=== PATIENT | female | born 1975 | race Caucasian/White ===

== ENCOUNTER 2018-09-10 12:14 | Emergency (ER) | payer MEDICAID ==
[~2018-09-10] VITALS: Ht 175.3 cm; Wt 104.0 kg
[~2018-09-10 12:14] MED LIST: CELE-193 PO; HYDR25CA PO; LYR75C PO; PROP10TA10 PO; PROP50TA3 PO; TRAM50TA2 PO; ZOLP5TAB2 PO
[2018-09-10 12:52] VITALS: BP 118/50
[2018-09-10] MEDS ORDERED: ERYT1OIN6 RIGHTEYE (13:12)
== END 2018-09-10 13:48 | disposition home or self-care (01) ==
LOC: ER 12:14
DX: H10.9 Unspecified conjunctivitis (principal); I10 Essential (primary) hypertension; I48.91 Unspecified atrial fibrillation; E05.90 Thyrotoxicosis, unspecified without thyrotoxic crisis or storm; Z56.0 Unemployment, unspecified; Z88.6 Allergy status to analgesic agent; Z88.1 Allergy status to other antibiotic agents; Z88.0 Allergy status to penicillin; Z88.2 Allergy status to sulfonamides; Z88.8 Allergy status to other drugs, medicaments and biological substances
CPT/HCPCS: 99283

== ENCOUNTER 2019-01-30 15:31 | Emergency (ER) | payer MEDICAID ==
[~2019-01-30] VITALS: Ht 175.3 cm; Wt 106.8 kg
[2019-01-30] MEDS ORDERED: benzonatate 100mg capsule PO ONE (16:15)
[2019-01-30] MEDS ORDERED: albuterol 2.5 MG/3 ML nebule NEB ONE (16:15)
[2019-01-30] MEDS ORDERED: GUAI600T45 PO (16:49)
[2019-01-30] MEDS ORDERED: BENZ-16 PO (16:49)
[2019-01-30 17:14] VITALS: BP 123/70
== END 2019-01-30 17:17 | disposition home or self-care (01) ==
LOC: ER 15:32
DX: J20.9 Acute bronchitis, unspecified (principal); I48.91 Unspecified atrial fibrillation; I10 Essential (primary) hypertension; E03.9 Hypothyroidism, unspecified; F41.9 Anxiety disorder, unspecified; F32.9 Major depressive disorder, single episode, unspecified; F17.210 Nicotine dependence, cigarettes, uncomplicated; Z56.0 Unemployment, unspecified; Z88.0 Allergy status to penicillin; Z88.2 Allergy status to sulfonamides; Z88.5 Allergy status to narcotic agent; Z88.6 Allergy status to analgesic agent; Z88.8 Allergy status to other drugs, medicaments and biological substances; Z79.899 Other long term (current) drug therapy
CPT/HCPCS: 71045; 93005; 94640; 94760; 99283

== ENCOUNTER 2019-10-01 20:37 | Emergency (ER) | payer MEDICAID ==
[~2019-10-01] VITALS: Ht 175.3 cm; Wt 98.6 kg
[~2019-10-01 20:37] MED LIST changes: +GUAI600T45 PO
[2019-10-01] MEDS ORDERED: BECL10.6 INH (21:49)
[2019-10-01] MEDS ORDERED: PRAZ1CAP5 PO (21:49)
[2019-10-01] MEDS ORDERED: BENZ-16 PO (21:49)
[2019-10-01] MEDS ORDERED: ALBU90AE2 INH (21:49)
[2019-10-01] MEDS ORDERED: LORA-269 PO (21:49)
[2019-10-01] MEDS ORDERED: ATOR40TA72 PO (21:49)
[2019-10-01] MEDS ORDERED: TRIA1CAP6 PO (21:49)
[2019-10-01] MEDS ORDERED: TIZA4TAB5 PO (21:49)
[2019-10-01] MEDS ORDERED: ESCI20TA45 PO (21:49)
[2019-10-01] MEDS ORDERED: LEVO75TA7 PO (21:49)
[2019-10-01] MEDS ORDERED: PROP10TA10 PO (22:16)
[2019-10-01 22:34] LABS: URINE HCG NEGATIVE (NEG)
[2019-10-01 22:38] LABS: BASOPHILS # (AUTO) 0.1 X10'3 (0-0.2); BASOPHILS % (AUTO) 0.8 % (0-1); EOSINOPHILS # (AUTO) 0.3 X10'3 (0-0.9); EOSINOPHILS % (AUTO) 2.5 % (0-6); HEMATOCRIT 36.6 % (35.0-45.0); HEMOGLOBIN 12.8 g/dl (12.0-16.0); LYMPHOCYTES # (AUTO) 3.1 X10'3 (1.1-4.8); LYMPHOCYTES % (AUTO) 26.1 % (21-51); MEAN CORPUSCULAR HEMOGLOBIN 33.4 PG (27.0-31.0); MEAN CORPUSCULAR HGB CONC 34.8 g/dL (33.0-36.5); MEAN PLATELET VOLUME 8.3 FL (7.4-10.4); MONOCYTES # (AUTO) 0.9 X10'3 (0-0.9); NEUTROPHILS # (AUTO) 7.4 X10'3 (1.8-7.7); NEUTROPHILS % (AUTO) 62.6 % (42-75); PLATELET COUNT 285 X10'3 (140-440); RED BLOOD COUNT 3.82 X10'6 (4.20-5.60); RED CELL DISTRIBUTION WIDTH 13.1 % (11.5-14.5); WHITE BLOOD COUNT 11.9 X10'3 (4.5-11.0)
[2019-10-01 22:44] LABS: CLARITY,URINE CLEAR (Clear); COLOR,URINE YELLOW (Yellow); GLUCOSE, URINE NEGATIVE (Neg); KETONES,URINE NEGATIVE (Neg); LEUKOCYTE ESTERASE ,URINE NEGATIVE (Neg); NITRITES, URINE NEGATIVE (Neg); OCCULT BLOOD,URINE NEGATIVE (Neg); PROTEIN,URINE NEGATIVE (Neg); UROBILINOGEN,URINE 0.2 E.U/dL (0.2-1.0)
[2019-10-01 22:47] LABS: URINE AMPHETAMINE SCREEN NEGATIVE (Neg); URINE BARBITUATE SCREEN NEGATIVE (Neg); URINE BENZODIAZEPINES SCREEN NEGATIVE (Neg); URINE CANNABINOID SCREEN NEGATIVE (Neg); URINE COCAINE SCREEN NEGATIVE (Neg); URINE METHADONE SCREEN NEGATIVE (Neg); URINE OPIATE SCREEN NEGATIVE (Neg); URINE PHENCYCLIDINE SCREEN NEGATIVE (Neg)
[2019-10-01 22:48] LABS: ALANINE AMINOTRANSFERASE 20 U/L (12-78); ALBUMIN 3.7 G/DL (3.4-5.0); ALBUMIN/GLOBULIN RATIO 0.9 (1.1-1.5); ALKALINE PHOSPHATASE 75 IU/L (46-116); ANION GAP 8 (8-16); ASPARTATE AMINO TRANSFERASE 12 U/L (10-37); BILIRUBIN,TOTAL 0.4 MG/DL (0.1-1.0); BLOOD UREA NITROGEN 24 MG/DL (7-18); BUN/CREATININE RATIO 16.9 (6.6-38.0); CHLORIDE 101 MMOL/L (99-107); CREATININE 1.42 MG/DL (0.40-0.90); GLUCOSE 106 MG/DL (70-104); POTASSIUM 3.3 MMOL/L (3.5-5.1); SODIUM 138 MMOL/L (135-145); TOTAL CARBON DIOXIDE 28.8 MMOL/L (24-32); TOTAL PROTEIN 7.8 G/DL (6.4-8.2); eGFR 40 ML/MIN
[2019-10-01 22:57] LABS: UA COLLECTION TYPE CLN CATCH MIDSTREAM
[2019-10-01 22:59] LABS: ETHANOL < 0.010 GM/DL (0.0-0.010)
--- NOTE | 2019-10-02 00:05 | NUR ---
CALLED REPORT TO [facility] IN OVERFLOW. tracx TECH CAME AND ESCORTED PT OVER.
--- NOTE | 2019-10-02 00:06 | NUR ---
pt moved to bed 20 in overflow. escorted by tech
--- NOTE | 2019-10-02 00:12 | NUR ---
Pt is cooperative with assessment and care. pt expressed that she is "a ball of nerves" and requested something for pain and to help her sleep. when asked what she takes at home, she replied, "I already took it all." PATRICE Petersen aware of pt request, no orders as of now.
[2019-10-02] MEDS ORDERED: ibuprofen tablet 400 MG TABLET PO ONE (00:25)
[2019-10-02] MEDS: LORazepam 1 MG tablet PO SCH ×3 (00:38→20:17)
--- NOTE | 2019-10-02 01:25 | NUR ---
pt is sleeping, rr unlabored, no s/s of distress noted.
--- NOTE | 2019-10-02 01:26 | NUR ---
packet has been sent to [place] office
--- NOTE | 2019-10-02 03:37 | NUR ---
Pt is sleeping, no s/s of distress noted.
--- NOTE | 2019-10-02 04:46 | NUR ---
pt continues to sleep, rr unlabored, no s/s of distress noted.
--- NOTE | 2019-10-02 06:42 | NUR ---
ASSUMED CARE FROM [facility] RN, PT IS CURRENTLY SLEEPING ON RIGHT SIDE, RESPIRATIONS SPONTANEOUS, EVEN AND UNLABORED, NO S/S OF DISTRESS, DISCOMFORT OR AGITATION, PT IN LINE OF SITE OF NURSES STATION. WILL CONTINUE TO MONITOR.
[2019-10-02] MEDS: propranolol 10mg tablet PO SCH (08:00)
[2019-10-02] MEDS: triamterene/HCTZ 37.5/25mg tablet PO SCH (08:00)
--- NOTE | 2019-10-02 08:08 | NUR ---
PT IS SLEEPING ON LEFT SIDE, RESPIRATIONS SPONTANEOUS, EVEN AND UNLABORED, NO S/S OF DISTRESS, DISCOMFORT OR AGITATION, PT IN LINE OF SITE OF NURSES STATION. WILL CONTINUE TO MONITOR.
--- NOTE | 2019-10-02 08:29 | NUR ---
[facility]AC[facility] AT [facility], PT CONTINUES TO SLEEP, RESPIRATIONS SPONTANEOUS, EVEN AND UNLABORED, NO S/S OF DISTRESS, DISCOMFORT, OR AGITATION, WILL MEDICATE PT WHEN SHE WAKES.
--- NOTE | 2019-10-02 08:34 | NUR ---
[facility] TO [place] PT, PT WOKE UP TO SPEAK WITH MARINO
[2019-10-02] MEDS: budesonide 0.5mg/2ml UD nebule IH SCH ×2 (09:00→21:00)
[2019-10-02] MEDS: benzonatate 100mg capsule PO SCH ×2 (09:10→20:17)
[2019-10-02] MEDS: ESCITALOPRAM OXALATE 5 MG TABLET PO SCH (09:10)
[2019-10-02] MEDS: tizanidine 4mg tablet PO SCH ×2 (09:11→20:17)
[2019-10-02] MEDS: atorvastatin 20mg tablet PO SCH (09:11)
[2019-10-02] MEDS: levoTHYROXINE 75mcg tablet PO SCH (09:11)
[2019-10-02] MEDS: pregabalin 75mg capsule PO SCH ×2 (09:11→20:17)
[2019-10-02] MEDS ORDERED: DOXY100C76 PO (09:29)
[2019-10-02] MEDS: DOXYCYCLINE 100MG CAPSULE PO SCH ×2 (09:54→20:16)
--- NOTE | 2019-10-02 11:03 | NUR ---
PT IS SLEEPING ON RIGHT SIDE, NO S/S OF DISTRESS, DISCOMFORT, OR AGITATION, PT IN LINE OF SITE OF NURSES STATION, WILL CONTINUE TO MONITOR.
--- NOTE | 2019-10-02 11:08 | NUR ---
SENIOR [employer] TECHNICIAN FROM [facility] AT BEDSIDE TO INTERVIEW PT.
[2019-10-02] MEDS: traMADol 50MG tablet PO PRN (14:19)
[2019-10-02] MEDS: hydrOXYzine 25 MG tablet PO PRN (14:49)
--- NOTE | 2019-10-02 14:51 | NUR ---
PT WAS SITTING UP ROCKING WITH LEGS ON FLOOR, PT APPEARED TO BE ANXIOUS DUE TO ESCILATED SURROUNDING EVENTS, OFFERED PT ATARAX PT WANTED, MEDICATED PT PER PRN ORDERS.
--- NOTE | 2019-10-02 15:35 | NUR ---
PT REQUESTING BREATHING TREATMENT USES QVAR AND ALBUTEROL INHALERS [facility], RT PAGED.
[2019-10-02] MEDS: albuterol 2.5 MG/3 ML nebule NEB PRN (15:49)
--- NOTE | 2019-10-02 15:57 | NUR ---
RT AT BEDSIDE PERFORMING PRN TX NOW PER ORDERS
--- NOTE | 2019-10-02 16:48 | NUR ---
PT IS RESTING ON BACK, RESPIRATIONS SPONTANEOUS, EVEN AND UNLABORED, NO S/S OF DISTRESS, DISCOMFORT OR AGITATION, PT IN LINE OF SITE OF NURSES STATION, WILL CONTNIUE TO MONITOR
--- NOTE | 2019-10-02 19:06 | NUR ---
One to one with the patient to assess severity of depressive symptoms and self harm risk. She reportedly has been homeless in the [facility] for the past year. She has been taking care of her grandchildren and has had family conflict with her daughter's boyfriend. She reports she has not been sleeping well. She also reports that her concentration and focus have been poor as well. She denies anxiety. She denies pain. She reports the only source of income she has is [employer] benefits and has been fighting for SSI and unpaid child support. She continues to have occassional suicidal thoughts.
[2019-10-02] MEDS: lactobacillus rhamnosus 10,000 MMU CELLS/CAPSULE PO SCH (20:17)
[2019-10-02] MEDS ORDERED: prazosin 1mg capsule PO SCH (21:00)
--- NOTE | 2019-10-02 22:20 | NUR ---
The patient appears to be sleeping
--- NOTE | 2019-10-02 23:59 | NUR ---
The patient appears to be sleeping
--- NOTE | 2019-10-03 03:20 | NUR ---
The patient appears to be sleeping
--- NOTE | 2019-10-03 05:15 | NUR ---
The patient appears to be asleep
--- NOTE | 2019-10-03 06:27 | NUR ---
pt sitting up in bed calm and cooperative.
--- NOTE | 2019-10-03 07:30 | NUR ---
Dr. Prather rounding on pt.
[2019-10-03] MEDS ORDERED: nicotine 7mg patch - 24hr TD SCH (08:00)
[2019-10-03] MEDS: benzonatate 100mg capsule PO SCH (08:28)
[2019-10-03] MEDS: levoTHYROXINE 75mcg tablet PO SCH (08:28)
[2019-10-03] MEDS: ESCITALOPRAM OXALATE 5 MG TABLET PO SCH (08:28)
[2019-10-03] MEDS: lactobacillus rhamnosus 10,000 MMU CELLS/CAPSULE PO SCH (08:28)
[2019-10-03] MEDS: pregabalin 75mg capsule PO SCH (08:28)
[2019-10-03] MEDS: DOXYCYCLINE 100MG CAPSULE PO SCH (08:28)
[2019-10-03] MEDS: hydrOXYzine 25 MG tablet PO PRN (08:29)
[2019-10-03] MEDS: tizanidine 4mg tablet PO SCH (08:29)
[2019-10-03] MEDS: traMADol 50MG tablet PO PRN (08:30)
[2019-10-03] MEDS: atorvastatin 20mg tablet PO SCH (08:30)
[2019-10-03] MEDS: albuterol 2.5 MG/3 ML nebule NEB PRN (08:39)
[2019-10-03] MEDS: budesonide 0.5mg/2ml UD nebule IH SCH (08:39)
--- NOTE | 2019-10-03 08:46 | NUR ---
pt sitting up to side of bed eating breakfast this AM. calm and cooperative. Ultram given for migraine headache.
[2019-10-03 09:13] VITALS: BP 138/89
[2019-10-03] MEDS: LORazepam 1 MG tablet PO SCH (09:25)
[2019-10-03] MEDS: propranolol 10mg tablet PO SCH (09:25)
[2019-10-03] MEDS: triamterene/HCTZ 37.5/25mg tablet PO SCH (09:25)
--- NOTE | 2019-10-03 09:30 | NUR ---
sitting up on side of bed calm and cooperative. pt states she is ready to get out of here and go to [facility].
--- NOTE | 2019-10-03 10:52 | NUR ---
pt came to nursing station and asked for information about the [facility]. RN printed a pamphlet for her to read. Plan fro pt to be picked up between [id number]. pt aware.
--- NOTE | 2019-10-03 11:19 | NUR ---
pt left with driver medic to [facility].
== END 2019-10-03 11:21 ==
LOC: ER 20:38
DX: R45.851 Suicidal ideations (principal); I48.91 Unspecified atrial fibrillation; I10 Essential (primary) hypertension; F41.9 Anxiety disorder, unspecified; E05.90 Thyrotoxicosis, unspecified without thyrotoxic crisis or storm; Z56.0 Unemployment, unspecified; Z88.0 Allergy status to penicillin; Z88.2 Allergy status to sulfonamides; Z88.5 Allergy status to narcotic agent; Z88.1 Allergy status to other antibiotic agents; Z79.899 Other long term (current) drug therapy
CPT/HCPCS: 36415; 80053; 80305; 80320; 81003; 81025; 84443; 85025; 94640; 99285; Z7610; 94760; J7626

== ENCOUNTER 2021-03-19 10:43 | Day surgery (SDC) | payer MEDICAID ==
[2021-03-17 12:23] LABS: BASOPHILS # (AUTO) 0.1 X10'3 (0-0.2); BASOPHILS % (AUTO) 0.5 % (0-1); EOSINOPHILS # (AUTO) 0.1 X10'3 (0-0.9); EOSINOPHILS % (AUTO) 0.9 % (0-6); HEMATOCRIT 35.1 % (35.0-45.0); HEMOGLOBIN 11.6 g/dl (12.0-16.0); LYMPHOCYTES # (AUTO) 2.6 X10'3 (1.1-4.8); LYMPHOCYTES % (AUTO) 23.1 % (21-51); MEAN CORPUSCULAR HEMOGLOBIN 33.5 PG (27.0-31.0); MEAN CORPUSCULAR HGB CONC 32.9 g/dL (33.0-36.5); MEAN CORPUSCULAR VOLUME 101.8 FL (78-98); MEAN PLATELET VOLUME 7.4 FL (7.4-10.4); MONOCYTES % (AUTO) 9.4 % (2-12); NEUTROPHILS # (AUTO) 7.3 X10'3 (1.8-7.7); NEUTROPHILS % (AUTO) 66.1 % (42-75); PLATELET COUNT 394 X10'3 (140-440); RED BLOOD COUNT 3.45 X10'6 (4.20-5.60); RED CELL DISTRIBUTION WIDTH 14.5 % (11.5-14.5); WHITE BLOOD COUNT 11.1 X10'3 (4.5-11.0)
[2021-03-17 12:34] LABS: PARTIAL THROMBOPLASTIN TIME 29 SECONDS (22-32)
[2021-03-17 12:47] LABS: ALANINE AMINOTRANSFERASE 31 U/L (12-78); ALBUMIN 3.8 G/DL (3.4-5.0); ALKALINE PHOSPHATASE 62 IU/L (46-116); ANION GAP 7 (8-16); ASPARTATE AMINO TRANSFERASE 10 U/L (10-37); BILIRUBIN,TOTAL 0.6 MG/DL (0.1-1.0); BLOOD UREA NITROGEN 20 MG/DL (7-18); BUN/CREATININE RATIO 16.9 (6.6-38.0); CALCIUM 9.3 MG/DL (8.5-10.1); CHLORIDE 104 MMOL/L (99-107); CREATININE 1.18 MG/DL (0.40-0.90); GLUCOSE 89 MG/DL (70-104); POTASSIUM 4.3 MMOL/L (3.5-5.1); SODIUM 140 MMOL/L (135-145); TOTAL CARBON DIOXIDE 29.2 MMOL/L (24-32); TOTAL PROTEIN 7.7 G/DL (6.4-8.2); eGFR 49 ML/MIN
[2021-03-19] VITALS (11 sets, daily range): BP systolic 110–135; BP diastolic 62–76
[~2021-03-19] VITALS: Ht 175.3 cm; Wt 103.9 kg
[~2021-03-19 10:43] MED LIST changes: +ALBU90AE2 INH; +ATOR40TA72 PO; +BECL10.6 INH; +BENZ-16 PO; -CELE-193 PO; +DOXY100C76 PO; +ESCI20TA39 PO; -GUAI600T45 PO; +LEVO75TA7 PO; +LORA-269 PO; +PRAZ1CAP5 PO; -PROP50TA3 PO; +TIZA4TAB5 PO; +TRIA1CAP6 PO; -ZOLP5TAB2 PO
[2021-03-19] MEDS ORDERED: diphenhydrAMINE 25mg capsule PO PRN (11:10)
[2021-03-19] MEDS ORDERED: nitroGLYCERIN 0.4mg SUBLingual tab SL PRN (11:10)
[2021-03-19] MEDS ORDERED: LORazepam 0.5 MG tablet PO PRN (11:10)
[2021-03-19] MEDS ORDERED: normal saline 1,000 ML IV SCH (11:10)
[2021-03-19] MEDS ORDERED: ACET-890 PO (11:27)
[2021-03-19] MEDS ORDERED: GUAI600T45 PO (11:27)
[2021-03-19] MEDS ORDERED: midazolam 1 mg/ML 2ml injection ONE ×2 (12:51→13:32)
[2021-03-19] MEDS ORDERED: iohexol 350 MG/ML 50ML vial IV ONE (12:51)
[2021-03-19] MEDS ORDERED: iohexol 350MG/ML 100ml bottle IV ONE (12:51)
[2021-03-19] MEDS ORDERED: LIDOcaine 1% (10mg/ml)w/preservative injection 20ml MDV ONE (12:51)
[2021-03-19] MEDS ORDERED: fentaNYL/PF 50MCG/1 ML 2ML syringe ONE (12:51)
[2021-03-19] MEDS ORDERED: proCHLORperazine 10 MG/2 ml inj IV PRN (14:20)
[2021-03-19] MEDS ORDERED: OXAZEpam 15mg capsule PO PRN (14:20)
[2021-03-19] MEDS ORDERED: HYDROcodone/acetaminophen 5mg/325mg tablet PO PRN (14:20)
[2021-03-19] MEDS ORDERED: HYDROcodone/acetaminophen 10/325mg tab PO PRN (14:20)
[2021-03-19] MEDS ORDERED: ondansetron/PF 4mg/2ml inj IV PRN (14:20)
== END 2021-03-19 19:55 | disposition home or self-care (01) ==
LOC: SSTAY O 10:43
PROVIDERS: ATTEND Internal Medicine Cardiovascular Disease
DX: R94.39 Abnormal result of other cardiovascular function study (principal); I20.9 Angina pectoris, unspecified; I10 Essential (primary) hypertension; J44.9 Chronic obstructive pulmonary disease, unspecified; F17.210 Nicotine dependence, cigarettes, uncomplicated; F41.0 Panic disorder [episodic paroxysmal anxiety]; E78.5 Hyperlipidemia, unspecified; F32.9 Major depressive disorder, single episode, unspecified; G89.4 Chronic pain syndrome; Z79.899 Other long term (current) drug therapy; Z88.5 Allergy status to narcotic agent; Z88.1 Allergy status to other antibiotic agents; Z88.2 Allergy status to sulfonamides; Z88.8 Allergy status to other drugs, medicaments and biological substances; Z79.01 Long term (current) use of anticoagulants
CPT/HCPCS: 36415; 71046; 80053; 85025; 85610; 85730; 93005; 93458; 99152; C1760; C1769; J1644; J2001; J2250; J3010; J7030; Q0163; Q9967; 99153; A4620; A6258